=== PATIENT | female | born 1960 | race Caucasian/White ===

== ENCOUNTER 2017-11-17 15:58 | Emergency (ER) | payer OTHER ==
[~2017-11-17] VITALS: Ht 167.6 cm; Wt 95.3 kg
== END 2017-11-17 21:09 | disposition home or self-care (01) ==
LOC: ER 15:58
DX: K52.9 Noninfective gastroenteritis and colitis, unspecified (principal)

== ENCOUNTER 2017-11-20 19:14 | Emergency (ER) | payer OTHER ==
[~2017-11-20] VITALS: Ht 167.6 cm; Wt 97.5 kg
[2017-11-21] MEDS ORDERED: PEPCID40 MG PO (04:06)
[2017-11-21] MEDS ORDERED: LEVSIN/SL0.125 MG SL (04:06)
[2017-11-21] MEDS ORDERED: PHENERGAN25 MG PO (04:06)
== END 2017-11-21 04:40 | disposition home or self-care (01) ==
LOC: ER 19:14
DX: K52.9 Noninfective gastroenteritis and colitis, unspecified (principal)

== ENCOUNTER 2017-11-28 20:42 | Emergency (ER) | payer OTHER ==
[~2017-11-28] VITALS: Ht 167.6 cm; Wt 93.0 kg
[~2017-11-28 20:42] MED LIST: LEVSIN/SL0.125 MG SL; PEPCID40 MG PO; PHENERGAN25 MG PO
== END 2017-11-29 04:29 | disposition home or self-care (01) ==
LOC: ER 20:42
DX: K21.9 Gastro-esophageal reflux disease without esophagitis (principal)

== ENCOUNTER 2024-11-28 19:05 | Emergency (ER) | payer OTHER ==
[~2024-11-28] VITALS: Ht 167.6 cm; Wt 113.4 kg
[2024-11-28] MEDS ORDERED: COZAAR25 MG (20:26)
[2024-11-28] MEDS ORDERED: KETOROLAC TROMETHAMINE 60 MG VIAL IM STA (21:06)
[2024-11-28] MEDS ORDERED: ACETAMINOPHEN 500 MG GEL..CAP PO STA (21:07)
[2024-11-28 21:44] LABS: BASO % 0.3 % (0.1-1.2); EOS # 0.19 (0.04-0.54); EOS % 2.7 % (0.7-7.0); LYMPH # 2.71 (1.18-3.74); LYMPH % 38.2 % (19.3-53.1); MEAN PLATELET VOLUME 11.00 fl (9.4-12.4); MONO # 0.62 (0.24-0.82); MONO % 8.7 % (4.7-12.5); NEUT # 3.53 (1.56-6.13); NEUT % 49.8 % (34.0-71.1); RED CELL DISTRIBUTION WIDTH 12.6 % (11.6-14.4)
[2024-11-28 22:49] LABS: COVID-19 AG NEGATIVE (NEGATIVE)
== END 2024-11-28 23:44 | disposition home or self-care (01) ==
LOC: ER 19:05
DX: S80.02XA Contusion of left knee, initial encounter (principal); W18.39XA Other fall on same level, initial encounter; Y93.89 Activity, other specified; Y92.89 Other specified places as the place of occurrence of the external cause; Y99.9 Unspecified external cause status; J06.9 Acute upper respiratory infection, unspecified; Z20.822 Contact with and (suspected) exposure to COVID-19; I10 Essential (primary) hypertension; Z91.013 Allergy to seafood